=== PATIENT | female | born 1995 | race Caucasian/White ===

== ENCOUNTER 2016-05-23 22:32 | Emergency (ER) | payer MEDICAID ==
[2016-05-23] MEDS ORDERED: ONDANSETRON HCL INJ/PF 4 MG/2 ML SDV IV ONE (23:52)
[2016-05-23] MEDS ORDERED: PROCHLORPERAZINE EDISYLATE INJ 10 MG/2 ML VIAL IV ONE (23:52)
[2016-05-23] MEDS ORDERED: NORMAL SALINE 1000 ML 1,000 ML IV ONE (23:52)
--- NOTE | 2016-05-24 00:04 | ER Document Report ---
ED General - General TRAVEL OUTSIDE OF THE U.S. IN LAST 30 DAYS: No - HPI Patient complains to provider of: psychiatric evaluation headache <AMALIA GOMEZ - Last Filed: 05/24/16 07:03> <ARA BERNAL - Last Filed: 05/24/16 10:32> - General Chief Complaint: Psych Problem Stated Complaint: PSYCH EVAL - HPI Notes: Patient states she has a history of ADHD paranoid schizophrenia bipolar depression multiple personality disorder patient states that she is visiting from [facility]. Patient states multiple psychiatric admissions in the past. Patient states her last physician or psychiatric provider had placed her on Seroquel 3 times a day patient states she has not been compliant with his medication patient states she is feeling aggressive having hard time coping. Patient denies any homicidal suicidal ideation. Patient does not seem to be manic at this time. No psychosis. Patient also complains of headache as global mild nausea denies any trauma states had a greater the last 24 hours. States history of headaches in the past. No change today. Patient is experiencing some mild photophobia. Denies fevers chills vomiting diarrhea abdominal pain (AMALIA GOMEZ) - Related Data Allergies/Adverse Reactions: diphenhydramine [From Benadryl] Allergy (Verified 05/23/16 22:45) Penicillins Allergy (Verified 05/23/16 22:45) Past Medical History - Social History Smoking Status: Current Every Day Smoker Family History: Reviewed & Not Pertinent Patient has suicidal ideation: No Patient has homicidal ideation: No Renal/ Medical History: Denies: Hx Peritoneal Dialysis <AMALIA GOMEZ - Last Filed: 05/24/16 07:03> Review of Systems - Review of Systems Constitutional: No symptoms reported EENT: No symptoms reported Cardiovascular: No symptoms reported Respiratory: No symptoms reported Gastrointestinal: No symptoms reported Genitourinary: No symptoms reported Female Genitourinary: No symptoms reported Musculoskeletal: No symptoms reported Skin: No symptoms reported Hematologic/Lymphatic: No symptoms reported Neurological/Psychological: Anxiety, Headaches -: Yes All other systems reviewed and negative <AMALIA GOMEZ - Last Filed: 05/24/16 07:03> Physical Exam - Vital signs Interpretation: Normal - General General appearance: Appears well, Alert - HEENT Head: Normocephalic, Atraumatic Eyes: Normal Conjunctiva: Normal Cornea: Normal Extraocular movements intact: Yes Eyelashes: Normal Pupils: PERRL Neck: Normal - Respiratory Respiratory status: No respiratory distress Chest status: Nontender Breath sounds: Normal Chest palpation: Normal - Cardiovascular Rhythm: Regular Heart sounds: Normal auscultation Murmur: No - Abdominal Inspection: Normal Distension: No distension Bowel sounds: Normal Tenderness: Nontender Organomegaly: No organomegaly - Back Back: Normal, Nontender - Extremities General upper extremity: Normal inspection, Nontender, Normal color, Normal ROM , Normal temperature General lower extremity: Normal inspection, Nontender, Normal color, Normal ROM , Normal temperature, Normal weight bearing. No: Kirsten's sign - Neurological Neuro grossly intact: Yes Cognition: Normal Orientation: AAOx4 Keiser Coma Scale Eye Opening: Spontaneous Yannick Coma Scale Verbal: Oriented Keiser Coma Scale Motor: Obeys Commands Yannick Coma Scale Total: 15 Speech: Normal Motor strength normal: LUE, RUE, LLE, RLE Sensory: Normal - Psychological Associated symptoms: Normal affect, Normal mood - Skin Skin Temperature: Warm Skin Moisture: Dry Skin Color: Normal <AMALIA OGMEZ - Last Filed: 05/24/16 07:03> Course - Laboratory Result Diagrams: 05/24/16 00:10 05/24/16 01:10 <AMALIA GOMEZ - Last Filed: 05/24/16 07:03> - Laboratory Result Diagrams: 05/24/16 00:10 05/24/16 01:10 <ARA BERNAL - Last Filed: 05/24/16 10:32> - Re-evaluation Re-evalutation: 05/24/16 00:05 05/24/16 07:03 Patient sleeping on reevaluation patient had notified nursing staff that she would like to stay for mental health evaluation in the morning patient does not meet any IVC criteria. Patient will be held for voluntary evaluation. (AMALIA GOMEZ) - Vital Signs Vital signs: Temp Pulse Resp BP Pulse Ox 97.8 F 89 18 110/69 96 05/24/16 10:25 05/24/16 10:25 05/24/16 10:25 05/24/16 10:25 05/24/16 10:25 (ARA BERNAL) - Laboratory Laboratory results interpreted by me: 05/24/16 05/24/16 01:10 01:10 Chloride 110 H Total Protein 6.2 L Albumin 3.5 L Urine Ketones 20 H Salicylates < 1.0 L Acetaminophen < 10 L (ARA BERNAL) Discharge <AMALIA GOMEZ - Last Filed: 05/24/16 07:03> <ARA BERNAL - Last Filed: 05/24/16 10:32> - Discharge Clinical Impression: Headache, Anxiety, Bipolar disorder Condition: Good Disposition: HOME, SELF-CARE Instructions: Headache ([facility]), Intravenous Compazine for Headaches ([facility]) Additional Instructions: HEADACHE: The physician does not feel that the headache you are experiencing has a serious underlying cause. Most headaches are due to emotional stress, with resultant muscle tension (tension headache). Occasionally, headaches are secondary to changes in the blood vessels of the scalp (vascular headache and migraine headache). Sometimes, a headache is the first symptom of another developing illness, such as a viral infection. You have no evidence of stroke, bleeding, meningitis, or other serious cause of your headache. The treatment of headaches varies with the severity and cause of the pain. Not all headaches need pain shots. In fact, there is evidence that using narcotics for headaches may make them worse in the long run. The physician will determine the therapy that's in your best interest. If you develop a fever, if the headache is different from any you've previously experienced, or if the headache progressively worsens, then call your physician at once or go to the emergency room. USE OF DIPHENHYDRAMINE: Diphenhydramine (Benadryl) is an antihistamine and has been recommended to help treat your headache and to prevent side effects of other medications used to treat headaches. The medication can be repeated four times daily. Age Elixir (12.5 mg/tsp) 25 mg pill adult 1-2 tabs Antihistamines may cause drowsiness, especially with the first dose. Do not operate machinery or drive while under the effects of the medication. Do not combine the medication with alcohol, or with any other medication without talking to your doctor. ANTINAUSEA MEDICATION: You have been given a medication to suppress nausea and vomiting. This type of medication can be given as a shot, pill, or suppository. It will usually last for many hours. Pills and shots usually last six to eight hours, suppositories last about 12 hours. For the typical illness, only one or two doses of the medication may be necessary. Mild lightheadedness may occur. This type of medicine can cause drowsiness. Do not drive or operate dangerous machinery while under its influence. Do not mix with alcohol. See your doctor at once if you have muscle spasms or tightness, or uncontrollable motions (particularly of the neck, mouth, or jaw). Persistent vomiting or severe lightheadedness should also be evaluated by the physician. USE OF ACETAMINOPHEN (Tylenol): Acetaminophen may be taken for pain relief or fever control. It's much safer than aspirin, offering a wider range of "safe" dosages. It is safe during . Some brand names are Tylenol, Panadol, Datril, Anacin 3, Tempra, and Liquiprin. Acetaminophen can be repeated every four hours. The following are maximum recommended dosages: WEIGHT Dose Drops Elixir Chewable( 80mg) (LBS.) drprs=droppers tsp=teaspoon >89 pounds or adults 650 mg to 900 mg Acetaminophen can be repeated every four hours. Maximum dose not to exceed 4000 mg a day. These maximum recommended dosages are slightly higher than the dosages written on the product container, but these dosages are very safe and below the toxic dosage for acetaminophen. FOLLOW-UP CARE: If you have been referred to a physician for follow-up care, call the physician s office for an appointment as you were instructed or within the next two days. If you experience worsening or a significant change in your symptoms, notify the physician immediately or return to the Emergency Department at any time for re-evaluation. Please take medication as prescribed for your headache. Please follow-up with resources provided by mental health team. Return to the ER symptoms worsen. Bipolar Disorder Bipolar disorder is also called manic-depressive disorder. Depression alternates with brain hyperactivity called terrell. Each phase lasts from several days to a few weeks. We don't know exactly what causes bipolar disorder , but it's treatable. During the "manic phase," you may feel elated and energetic. You may have racing thoughts, rapid speech, increased activity, and grandiose ideas. During this time, you may not realize how poor your judgement is. Inappropriate spending, drug abuse, excessive alcohol use, marriage problems, and irresponsible sexual behavior are common during the manic phase. During the "depressive phase," you might feel depressed, guilty, worthless , fatigued, and unable to concentrate. You might have thoughts of suicide. Good treatments are available for bipolar disorder. [place] is a classic drug for bipolar disorder, and is still often useful. If the manic phase is very mild, an antidepressant alone can be prescribed. If the manic phase is very severe, an antipsychotic medicine (such as Haldol) may be needed. The treatment must be matched to your symptoms, so it's important to work closely with your psychiatric care provider. Contact your physician, the hospital emergency center, crisis line, or your counsellor if you are losing control or having self-destructive thoughts. You have been evaluated by mental health therapists in the emergency department. They recommend that you follow-up at [facility]. Prescriptions: Prochlorperazine Maleate [Compazine] 5 mg PO Q6 #20 tablet
[2016-05-24 00:36] LABS: ABSOLUTE EOSINOPHILS # (AUTO) 0.1 10^3/uL (0.0-0.6); ABSOLUTE LYMPHOCYTES (AUTO) 2.2 10^3/uL (0.5-4.7); ABSOLUTE MONOCYTES (AUTO) 0.7 10^3/uL (0.1-1.4); ABSOLUTE NEUT (AUTO) 5.5 10^3/uL (1.7-8.2); BASOPHILS % (AUTO) 0.6 % (0-2); EOSINOPHILS % (AUTO) 0.9 % (0-6); HEMATOCRIT 42.1 % (36.0-47.0); HEMOGLOBIN 14.1 g/dL (12.0-15.5); HGB HCT DIFFERENCE 0.2; LYMPHOCYTES % (AUTO) 25.9 % (13-45); MEAN CORPUSCULAR HEMOGLOBIN 30.8 pg (27.0-33.4); MEAN CORPUSCULAR HGB CONC 33.4 g/dL (32.0-36.0); MEAN CORPUSCULAR VOLUME 92 fl (80-97); MONOCYTES % (AUTO) 8.5 % (3-13); RED BLOOD COUNT 4.57 10^6/uL (3.72-5.28); RED CELL DISTRIBUTION WIDTH 13.1 % (11.5-14.0); SEGMENTED NEUTROPHILS % (AUTO) 64.1 % (42-78); WHITE BLOOD COUNT 8.5 10^3/uL (4.0-10.5)
[2016-05-24 01:53] LABS: APPEARANCE,URINE CLEAR; BILIRUBIN,URINE NEGATIVE (NEGATIVE); GLUCOSE, URINE NEGATIVE (NEGATIVE); KETONES,URINE 20 mg/dL (NEGATIVE); LEUKOCYTE ESTERASE,URINE NEGATIVE (NEGATIVE); NITRITE,URINE NEGATIVE (NEGATIVE); PROTEIN,URINE NEGATIVE (NEGATIVE); URINE SPECIFIC GRAVITY 1.014; UROBILINOGEN,URINE NEGATIVE mg/dL (<2.0)
[2016-05-24 02:08] LABS: ALANINE AMINOTRANSFERASE 23 U/L (5-35); ALBUMIN 3.5 g/dL (3.7-5.6); ALKALINE PHOSPHATASE 67 U/L (50-135); ANION GAP 10 (5-19); ASPARTATE AMINO TRANSFERASE 28 U/L (5-30); BILIRUBIN,TOTAL 0.2 mg/dL (0.2-1.3); BLOOD UREA NITROGEN 9 mg/dL (7-20); CALCIUM 8.7 mg/dL (8.4-10.2); CARBON DIOXIDE 24 mmol/L (22-30); CHLORIDE 110 mmol/L (98-107); CREATININE RESULT 0.63 mg/dL (0.52-1.25); GLUCOSE 109 mg/dL (75-110); POTASSIUM 3.8 mmol/L (3.6-5.0); SODIUM 144.4 mmol/L (137-145); TOTAL PROTEIN 6.2 g/dL (6.3-8.2)
[2016-05-24 02:11] LABS: ALCOHOL < 10 mg/dL (NONE DETECTED)
[2016-05-24 02:14] LABS: URINE BARBITURATES SCREEN NEGATIVE; URINE METHADONE SCREEN NEGATIVE; URINE PHENCYCLIDINE SCREEN NEGATIVE
--- NOTE | 2016-05-24 10:23 | ER Document Report ---
Doctor's Note Notes: 05/24/16 10:23 Rounds: Chart reviewed and patient interviewed. Patient is being evaluated for a headache. She also has a history of psychiatric disease, most likely bipolar disorder and ADHD. Patient is visiting here from [place]. Has not been taking any psychiatric medications for several months or more. She says that she supposed to be taking lithium 1200 mg twice a day and Seroquel 50 mg 3 times a day. Patient is feeling better this morning. Carries on a conversation with me appropriately. Vital signs are all normal. Labs were essentially normal. Patient appears to be medically stable for transfer or discharge. Mental health has evaluated the patient and feels that she can be discharged to follow-up as an outpatient. She has been without any medications for several months and they are not recommending medications be prescribed here today. Tadeo Mansfield M.D. 05/24/16 10:30
[2016-05-24 10:26] VITALS: BP 110/69
--- NOTE | 2016-05-24 10:37 | PSYCHOLOGICAL NOTE ---
Psych Note - Psych Note Psych Note: Patient is a 20 year old female who presents to the ED voluntarily seeking assistance for her mood lability. Patient states she is in [place] visiting from [place] with her fiance, and is considering becoming a permanent resident. Patient states she historically has been treated for Bipolar Disorder, most recently with Stark and Seroquel. Patient states around 6 months ago, she stopped taking the medications because she "wanted to do it on my own." She states over the past few weeks, her mood swings have become unmanageable, and she is verbally aggressive. Patient states her baseline is irritable and now any little incident upsets her and becomes explosive. Patient denies current suicidal/homicidal ideations intent, plan or means. Patient states she has attempted suicide a long time ago, but declines to expand on this statement. Patient did provide consent to speak with her fiance, who is en route. Patient's fiance presented bedside and states nothing specific happened last night, just that the patient has not been herself lately and she asked her if she would get help, and patient "finally" agreed. Fiance states she understands that today is a holiday and they will need to schedule an appointment. She states they came seeking referrals to a local provider and did not expect medications. Patient is A&O. Mood here is euthymic, but patient reports her mood as labile. Affect normal and appropriate. Patient denies suicidal/homicidal ideations, intent, plan, or means. Patient denies A/V H; delusions not noted. Thought processes were organized. Conversational speech was WNL for rate, tone, and prosody. Intellectual abilities were estimated within average range. Attention and focus were fair. Insight, judgment, and impulse control were fair. 296.80 (F31.9) Unspecified Bipolar Disorder, per history Patient is psychiatrically cleared for discharge and encouraged to follow up with a local provider of her choice. Provided patient and her fiance with local resources, and encouraged them to pursue outpatient treatment at a clinic who may access state funding, such as [facility] or [facility]. Patient does not meet criteria for IVC as she denies SI/HI and is not experiencing any command hallucinations. I consulted with Dr. Fischer in regards to the care and management of this patient. ED MD is in agreement with disposition and recommendations.
== END 2016-05-24 10:42 | disposition home or self-care (01) ==
LOC: ER 22:32
DX: R51 Headache (principal); F41.9 Anxiety disorder, unspecified; F31.9 Bipolar disorder, unspecified; F90.9 Attention-deficit hyperactivity disorder, unspecified type
CPT/HCPCS: 99284; 96361; 96374; 96375; 36415; 80307 ×4; 85025; 81025; 80053; 81001; J0780; J2405; J7030

== ENCOUNTER 2016-06-03 21:21 | Emergency (ER) | payer MEDICAID ==
[2016-06-03 21:42] VITALS: BP 127/57
--- NOTE | 2016-06-03 21:50 | ER Document Report ---
ED Medical Screen (RME) - General Stated Complaint: FOOT PAIN Mode of Arrival: Ambulatory Information source: Patient Notes: She presents to the emergency department with left foot pain no injury. I have greeted and performed a rapid initial assessment of this patient. A comprehensive ED assessment and evaluation of the patient, analysis of test results and completion of the medical decision making process will be conducted by additional ED providers. TRAVEL OUTSIDE OF THE U.S. IN LAST 30 DAYS: No - Related Data Allergies/Adverse Reactions: diphenhydramine [From Benadryl] Allergy (Verified 05/23/16 22:45) Penicillins Allergy (Verified 05/23/16 22:45) Past Medical History Renal/ Medical History: Denies: Hx Peritoneal Dialysis Physical Exam - Vital signs Vitals: Temp Pulse Resp BP Pulse Ox 98.5 F 100 H 20 127/57 H 98 06/03/16 21:41 06/03/16 21:41 06/03/16 21:41 06/03/16 21:41 06/03/16 21:41 Course - Vital Signs Vital signs: Temp Pulse Resp BP Pulse Ox 98.5 F 100 H 20 127/57 H 98 06/03/16 21:41 06/03/16 21:41 06/03/16 21:42 06/03/16 21:41 06/03/16 21:41
[2016-06-03] MEDS ORDERED: HYDROCODONE/ACETAMINOPHEN 5-325 MG TABLET PO ONE (22:45)
[2016-06-03] MEDS ORDERED: HYDROCODONE/ACETAMINOPHEN 5-325 MG TABLET ONE (22:47)
--- NOTE | 2016-06-03 22:49 | ER Document Report ---
ED Extremity Problem, Lower - General Chief Complaint: Foot Pain Stated Complaint: FOOT PAIN Mode of Arrival: Ambulatory Information source: Patient Notes: Pt is a 20 year female who presents to the ER for left foot pain to the top of her foot with no injury. Pt states that it is difficult to move her toes due to pain and that the foot is a "little swollen." TRAVEL OUTSIDE OF THE [place] IN LAST 30 DAYS: No - Related Data Allergies/Adverse Reactions: diphenhydramine [From Benadryl] Allergy (Verified 06/03/16 21:50) Penicillins Allergy (Verified 06/03/16 21:50) Past Medical History - General Information source: Patient - Social History Smoking Status: Current Every Day Smoker Cigarette use (# per day): Yes - 20 Chew tobacco use (# tins/day): No Frequency of alcohol use: None Drug Abuse: None Family History: Reviewed & Not Pertinent Patient has suicidal ideation: No Patient has homicidal ideation: No Renal/ Medical History: Denies: Hx Peritoneal Dialysis Review of Systems - Review of Systems Constitutional: No symptoms reported EENT: No symptoms reported Cardiovascular: No symptoms reported Respiratory: No symptoms reported Gastrointestinal: No symptoms reported Genitourinary: No symptoms reported Female Genitourinary: No symptoms reported Musculoskeletal: See HPI Skin: See HPI Hematologic/Lymphatic: No symptoms reported Neurological/Psychological: No symptoms reported Physical Exam - Vital signs Vitals: Temp Pulse Resp BP Pulse Ox 98.5 F 100 H 20 127/57 H 98 06/03/16 21:41 06/03/16 21:41 06/03/16 21:41 06/03/16 21:41 06/03/16 21:41 - Notes Notes: PHYSICAL EXAMINATION: GENERAL: Well-appearing and in no acute distress. HEAD: Atraumatic, normocephalic. EYES: Pupils equal round and reactive to light, extraocular movements intact, sclera anicteric, conjunctiva are normal. NECK: Normal range of motion, supple without lymphadenopathy LUNGS: CTAB and equal. No wheezes rales or rhonchi. HEART: Regular rate and rhythm without murmurs EXTREMITIES: limited range of motion of left ankle secondary to pain, tender to lateral/dorsal left foot, no pitting edema. No cyanosis. NEUROLOGICAL: Cranial nerves grossly intact. Normal sensory/motor exams. PSYCH: Normal mood, normal affect. SKIN: Warm, Dry, normal turgor, no rashes or lesions noted Course - Re-evaluation Re-evalutation: 06/03/16 23:36 X-rays of the ankle and foot were negative for any acute pathology. Patient given crutches and place an Alberto wrap. I advised her to take anti-inflammatory medications such as Motrin. - Vital Signs Vital signs: Temp Pulse Resp BP Pulse Ox 98.5 F 100 H 20 127/57 H 98 06/03/16 21:41 06/03/16 21:41 06/03/16 21:42 06/03/16 21:41 06/03/16 21:41 Discharge - Discharge Clinical Impression: Sprain of foot, left Qualifiers: Encounter type: initial encounter Qualified Code(s): S93.602A - Unspecified sprain of left foot, initial encounter Condition: Stable Disposition: HOME, SELF-CARE Instructions: Sprain ([facility]), Ice Packs ([facility]) Additional Instructions: Return immediately for any new or worsening symptoms. Follow up with primary care provider, call tomorrow to make followup appointment. Prescriptions: Ibuprofen [Motrin 800 mg Tablet] 800 mg PO Q8H PRN #30 tab PRN Reason:
== END 2016-06-04 00:56 | disposition home or self-care (01) ==
LOC: ER 21:21
DX: S93.602A Unspecified sprain of left foot, initial encounter (principal); X58.XXXA Exposure to other specified factors, initial encounter; M79.672 Pain in left foot; F17.210 Nicotine dependence, cigarettes, uncomplicated; Z88.8 Allergy status to other drugs, medicaments and biological substances; Z88.0 Allergy status to penicillin
CPT/HCPCS: 99283